=== PATIENT | female | born 1975 | race Caucasian/White ===

== ENCOUNTER 2019-02-09 12:08 | Day surgery (SDC) | payer BC ==
[2019-02-09] MEDS ORDERED: LIDOCAINE HCL 2% 100 MG/5 ML IJ ONE (12:09)
[2019-02-09] MEDS ORDERED: DIPRIVAN 200 MG/20 ML IV ONE (12:09)
[2019-02-09] MEDS ORDERED: Decadron 4 MG INJ IV ONE (12:09)
[2019-02-09] MEDS ORDERED: Ketamine HCl 50 MG/ML IJ ONE (12:09)
[2019-02-09] MEDS ORDERED: Xylocaine-Mpf 2% 5 Ml Vial IJ ONE (12:09)
[2019-02-09] MEDS ORDERED: Xylocaine 1% Vial 30 ML PF IJ ONE (12:09)
[2019-02-09] MEDS ORDERED: Lactated Ringers 1,000 ML IV ONE (14:26)
--- NOTE | 2019-02-09 16:08 | XRAY ---
27 seconds of fluoroscopy was used in surgery for right C3-C4 and C4-C5 MBB.
--- NOTE | 2019-02-09 16:18 | XRAY ---
Indication: Right C3-C5 and MBB. Intraoperative fluoroscopy was provided for 27 seconds. 2 digital spot images submitted for interpretation demonstrates posterior needle tips overlying the right C3-C4-C5 facets. Correlate with intraoperative findings/report. Incidental lower cervical fusion plate/screws.
== END 2019-02-09 13:58 | disposition home or self-care (01) ==
LOC: SDC-PAIN 12:08
PROVIDERS: ATTEND Psychiatry & Neurology Pain Medicine
DX: M47.812 Spondylosis without myelopathy or radiculopathy, cervical region (principal); Z79.899 Other long term (current) drug therapy
CPT/HCPCS: 64490; 64491; 72040; 77002; J1100; J2001; J2704

== ENCOUNTER 2019-07-27 08:25 | Day surgery (SDC) | payer BC ==
[2019-07-27] MEDS ORDERED: Sodium Chloride 0.9(Preservative Free) 10 ML IJ ONE (08:26)
[2019-07-27] MEDS ORDERED: Xylocaine 1% Vial 30 ML PF IJ ONE (08:26)
[2019-07-27] MEDS ORDERED: Decadron 4 MG INJ IV ONE (08:26)
--- NOTE | 2019-07-27 12:56 | XRAY ---
Indication: C7-T1 JESÚS. Intraoperative fluoroscopy was provided for 34 seconds. 2 digital spot images submitted for interpretation demonstrates posterior needle tip projecting over the C7 segment, right of midline. Small amount of contrast injected for needle tip placement. Correlate with intraoperative findings/report. Incidental lower cervical fusion plate/screws.
--- NOTE | 2019-07-27 13:02 | XRAY ---
34 seconds fluoroscopy time in surgery for C7-T1 JESÚS.
== END 2019-07-27 10:35 | disposition home or self-care (01) ==
LOC: SDC-PAIN 08:25
PROVIDERS: ATTEND Psychiatry & Neurology Pain Medicine
DX: M54.12 Radiculopathy, cervical region (principal); K21.9 Gastro-esophageal reflux disease without esophagitis; F32.9 Major depressive disorder, single episode, unspecified; Z79.899 Other long term (current) drug therapy
CPT/HCPCS: 72040; 77003; J1100; J2001

== ENCOUNTER 2019-08-24 13:19 | Day surgery (SDC) | payer BC ==
[2019-08-24] MEDS ORDERED: Xylocaine 1% Vial 30 ML PF IJ ONE (13:20)
[2019-08-24] MEDS ORDERED: Sodium Chloride 0.9(Preservative Free) 10 ML IJ ONE (13:20)
[2019-08-24] MEDS ORDERED: Depo-Medrol 40 MG/ML IM ONE (13:20)
[2019-08-24] MEDS ORDERED: BENADRYL 50 MG/ML ONE (14:45)
[2019-08-24] MEDS ORDERED: Lactated Ringers 1,000 ML IV ONE (14:50)
--- NOTE | 2019-08-24 16:25 | XRAY ---
Indication: Cervical JESÚS. Intraoperative fluoroscopy was provided for 26 seconds. 3 digital spot images submitted for interpretation demonstrates posterior midline needle tip projecting just posterior to the T1 segment. Small amount of contrast injected for needle tip placement. Correlate with intraoperative findings/report. Incidental lower cervical fusion plate/screws.
--- NOTE | 2019-08-24 16:34 | XRAY ---
26 seconds of fluoroscopy was used in surgery for a cervical JESÚS.
== END 2019-08-24 15:05 | disposition home or self-care (01) ==
LOC: SDC-PAIN 13:19
PROVIDERS: ATTEND Psychiatry & Neurology Pain Medicine
DX: M54.12 Radiculopathy, cervical region (principal); F32.9 Major depressive disorder, single episode, unspecified; K21.9 Gastro-esophageal reflux disease without esophagitis; Z79.899 Other long term (current) drug therapy
CPT/HCPCS: 27096; 62321; 72040; 77003; J1030; J1200; J2001; Q9966; G0260